=== PATIENT | female | born 1950 | race African-American/Black ===

== ENCOUNTER 2023-08-14 08:12 | Outpatient (CLI) | payer MEDICARE | END 2023-08-14 08:13 | disposition home or self-care (01) | LOC: RAD 08:12 | PROVIDERS: ATTEND Internal Medicine Critical Care Medicine | DX: R06.00 Dyspnea, unspecified (principal) | CPT/HCPCS: 71046 ==

== ENCOUNTER 2025-08-29 00:19 | Emergency (ER) | payer MEDICARE ==
[2025-08-29 01:53] LABS: #Basophils 0.03 10x3/uL (0.0-0.2); #Eosinophils 0.05 10x3/uL (0.0-0.7); #Monocytes 1.60 10x3/uL (0.11-0.59); #Neutrophils 4.39 10x3/uL (1.40-6.50); %Basophils 0.4 % (0.0-1.0); %Eosinophils 0.6 % (0.0-10.0); %Lymphocytes 26.0 % (21.0-51.0); %Monocytes 19.4 % (0.0-10.0); %Neutrophils 53.2 % (42.0-75.0); Hematocrit 32.2 % (36.0-47.0); Hemoglobin 9.9 g/dL (12.0-16.0); Mean Corpuscular Hemoglobin 25.5 pg (27.0-31.0); Mean Corpuscular Volume 83.0 fL (78.0-98.0); Platelet Count 215 10x3/uL (130-400); Red Blood Cell (RBC) Count 3.88 mill/uL (4.20-5.40); White Blood Cell (WBC) Count 8.24 10x3/uL (4.8-10.8)
[2025-08-29 02:26] LABS: ALT (SGPT) 39 U/L (Less than 34); AST (SGOT) 53 U/L (11-34); Albumin 3.7 g/dL (3.1-4.5); Alkaline Phosphatase 63 U/L (40-110); Anion Gap 14 mmol/L (10-20); BUN (Urea Nitrogen) 27 mg/dL (9.8-20.1); Bilirubin, Total 0.3 mg/dL (0.3-1.2); Calc. Creatinine Clearance 0 mL/min (70-130); Calcium 9.8 mg/dL (7.8-10.44); Carbon Dioxide 22 mmol/L (23-31); Chloride 107 mmol/L (98-107); Globulin 3.7 g/dL (2.4-3.5); Glucose 49 mg/dL (83-110); Potassium 3.5 mmol/L (3.5-5.1); Sodium 139 mmol/L (136-145)
[2025-08-29] MEDS ORDERED: Dexamethasone 10 MG/ML VIAL ONE (03:52)
== END 2025-08-29 03:59 | disposition home or self-care (01) ==
LOC: ERS 00:19
DX: J10.1 Influenza due to other identified influenza virus with other respiratory manifestations (principal); E16.2 Hypoglycemia, unspecified
CPT/HCPCS: 71045; 80053; 82962; 84484; 85025; 87428; 93005; 99285; J1100; 36416